=== PATIENT | female | born 1960 | race Caucasian/White ===

== ENCOUNTER 2017-03-24 12:42 | Emergency (ER) | payer BC ==
[2017-03-24] MEDS ORDERED: Alum-Mag Hydrox-Simethicone Susp (30 mL) PO STA (13:34)
--- NOTE | 2017-03-24 13:44 | C.PDOC ---
History Of Present Illness 57 year old female presents to the ED for evaluation of chest pain which began this morning. Patient describes her symptoms as a constant, pressure and tightness sensation. Patient took Gas-X before going to work, from which she found no relief. Patient's symptoms continued while at work and she went to the school nurse, who advised her to report to the ED for further evaluation. Patient was given Aspirin and Narcan en route to the ED and states her pain has improved. She denies fever, chills, shortness of breath, cough, diaphoresis, nausea, vomiting. Time Seen by Provider: 03/24/17 13:06 Chief Complaint (Nursing): Chest Pain History Per: Patient History/Exam Limitations: no limitations Onset/Duration Of Symptoms: Hrs Current Symptoms Are (Timing): Better Quality: Pressure, Squeezing, "Pain" Associated Symptoms: denies: Diaphoresis Additional History Per: Patient Past Medical History Reviewed: Historical Data, Nursing Documentation, Vital Signs Vital Signs: Last Vital Signs Temp 97.7 F 03/24/17 15:35 Pulse 61 03/24/17 15:35 Resp 16 03/24/17 15:35 BP 153/77 H 03/24/17 15:35 Pulse Ox 99 03/25/17 00:30 - Medical History PMH: Asthma, Bronchitis, Hypercholesterolemia Family History: States: No Known Family Hx - Social History Hx Tobacco Use: Yes Hx Alcohol Use: No Hx Substance Use: No - Immunization History Hx Tetanus Toxoid Vaccination: No Hx Influenza Vaccination: No Hx Pneumococcal Vaccination: No Review Of Systems Constitutional: Negative for: Fever, Chills Cardiovascular: Positive for: Chest Pain Respiratory: Negative for: Cough, Shortness of Breath Gastrointestinal: Negative for: Nausea, Vomiting Physical Exam - Physical Exam Appears: Non-toxic, No Acute Distress Skin: Normal Color, Warm, Dry Head: Atraumatic, Normacephalic Eye(s): bilateral: Normal Inspection Oral Mucosa: Moist Neck: Supple Chest: Symmetrical, No Deformity, No Tenderness Cardiovascular: Rhythm Regular, No Murmur Respiratory: Normal Breath Sounds, No Rales, No Rhonchi, No Wheezing Extremity: Normal ROM, Capillary Refill (less than 2 seconds) Neurological/Psych: Oriented x3, Normal Speech, Normal Cognition Gait: Steady ED Course And Treatment - Laboratory Results Result Diagrams: 03/24/17 14:01 03/24/17 13:59 Lab Interpretation: Normal (trop neg.) ECG: Interpreted By Me ECG Rhythm: Sinus Rhythm ECG Interpretation: Normal Rate From EC O2 Sat by Pulse Oximetry: 99 Pulse Ox Interpretation: Normal - Radiology CXR: Interpreted by Me CXR Interpretation: Yes: No Acute Disease - Other Rad CXR X-Ray: Interpreted by Me, Viewed By Me, Read By Radiologist Interpretation: IMPRESSION: No acute findings identified. Progress Note: Bloodwork, urinalysis, CXR, EKG, Influenza A/B swab ordered and reviewed. Maalox PO administered. Reevaluation Time: 15:02 Reassessment Condition: Improved Medical Decision Making Medical Decision Making: probable GERD improved with MAalox, no cardiac s/s, neg w/u. Disposition Doctor Will See Patient In The: Office Counseled Patient/Family Regarding: Studies Performed, Diagnosis - Disposition Referrals: Dar Key MD, PhD [Staff Provider] - Disposition: HOME/ ROUTINE Disposition Time: 15:02 Condition: GOOD Additional Instructions: continue protonix daily Maalox 30 cc (one tablespoon) 4-5x/day as needed Stop smoking [id number] with your PMD as needed. Complete cardiac workup negative today- discomfort improve with Pepcid and Maalox. Instructions: How to Stop Smoking (ED), Gastroesophageal Reflux Disease (ED) Forms: [facility] (Cam[place]onian) - Clinical Impression Clinical Impression: Chest discomfort - Scribe Statement The provider has reviewed the documentation as recorded by the Scribe (Sally Ley) Provider Attestation: All medical record entries made by the Scribe were at my direction and personally dictated by me. I have reviewed the chart and agree that the record accurately reflects my personal performance of the history, physical exam, medical decision making, and the department course for this patient. I have also personally directed, reviewed, and agree with the discharge instructions and disposition.
[2017-03-24] MEDS ORDERED: Alum-Mag Hydrox-Simethicone Susp (30 mL) ONE (13:47)
--- NOTE | 2017-03-24 13:54 | RAD ---
HISTORY: SOB COMPARISON: Chest x-ray performed 01/18/13 TECHNIQUE: Chest PA and lateral FINDINGS: Examination limited by habitus. LUNGS: Mild linear atelectasis, left lung base. No focal consolidation. Please note that chest x-ray has limited sensitivity for the detection of pulmonary masses. PLEURA: No significant pleural effusion identified. No definite pneumothorax . CARDIOVASCULAR: Heart size appears within normal limits. Faint atherosclerotic calcifications of the aortic knob. OSSEOUS STRUCTURES: No acute osseous abnormality identified. VISUALIZED UPPER ABDOMEN: Unremarkable. OTHER FINDINGS: None. IMPRESSION: No acute findings identified. See above.
[2017-03-24 14:07] LABS: BASO # 0.1 K/uL (0.0-0.2); BASO % 0.7 % (0.0-2.0); EOS # 0.2 K/uL (0.0-0.7); EOS % 2.6 % (0.0-4.0); HEMOGLOBIN 12.8 g/dL (11.0-16.0); LYMPH # 2.6 K/uL (1.0-4.3); LYMPH % 34.7 % (20.0-40.0); MEAN CELL VOLUME 84.5 fL (81.0-99.0); MEAN CORPUSCULAR HEMOGLOBIN 28.3 pg (27.0-31.0); MEAN CORPUSCULAR HGB CONC 33.6 g/dL (33.0-37.0); MEAN PLATELET VOLUME 9.2 fL (7.2-11.7); MONO # 0.5 K/uL (0.0-0.8); MONO % 6.9 % (0.0-10.0); NEUT # 4.1 K/uL (1.8-7.0); NEUT % 55.1 % (50.0-75.0); RBC 4.52 Mil/uL (3.80-5.20); RED CELL DISTRIBUTION WIDTH 15.3 % (11.5-14.5); WHITE BLOOD COUNT 7.5 K/uL (4.8-10.8)
[2017-03-24 14:14] LABS: PROTHROMBIN TIME 10.7 SECONDS (9.7-12.2)
[2017-03-24 14:17] LABS: ALB/GLOB RATIO 1.2 (1.0-2.1); ALBUMIN 4.3 g/dL (3.5-5.0); ALT/SGPT 37 U/L (9-52); AST/SGOT 25 U/L (14-36); BLOOD UREA NITROGEN 14 mg/dL (7-17); GFR AFRICAN-AMERICAN > 60; GFR NON-AFRICAN AMERICAN > 60
[2017-03-24 14:28] LABS: B-TYPE NATRIURETIC PEPTIDE 72.8 pg/mL (0-900)
[2017-03-24 15:47] VITALS: BP 153/77; PULSE 61; RESP 16; TEMP 97.7
[2017-03-25 00:30] VITALS: O2SAT 99
--- NOTE | 2017-03-27 11:26 | CARD ---
APPROVED REPORT EKG Measurement Heart [id number] <Conclusion> Normal sinus rhythm Normal ECG
== END 2017-03-24 15:50 | disposition home or self-care (01) ==
LOC: C.ER 12:42
DX: R07.89 Other chest pain (principal); E78.00 Pure hypercholesterolemia, unspecified; Z87.891 Personal history of nicotine dependence